=== PATIENT | female | born 1985 | race Caucasian/White ===

== ENCOUNTER 2019-02-08 12:14 | Emergency (ER) | payer BC ==
[2019-02-08] MEDS ORDERED: NS 1,000 ML IV ONE (12:41)
[2019-02-08] MEDS ORDERED: ONDANSETRON 4 MG/2 ML VIAL IVP ONE (12:41)
[2019-02-08 13:17] LABS: PLATELET COUNT 195 10^3/uL (150-400)
--- NOTE | 2019-02-08 14:45 | EDPHY ---
H & P Stated Complaint: n/v/d since tuesday Time Seen by Provider: 02/08/19 12:28 HPI/ROS: Chief complaint: Nausea, vomiting and diarrhea History of present illness: This is a 33-year-old female presents to the emergency department for evaluation nausea, vomiting and diarrhea. She reports she became sick approximately 4 days ago. Initially with nausea and vomiting now with diarrhea. She has occasional intermittent abdominal cramping. She denies precipitating factors. She denies alleviating factors. She denies other associated signs or symptoms including no fevers, no bilious vomit, no blood in the stools, no urinary symptoms. [place]. She denies sick contacts, she denies foreign travel, denies recent antibiotic use. Review of systems: A 10 point review of systems was obtained and other than described above was negative. - Personal History LMP (Females 10-55): 22-28 Days Ago Current Tetanus Diphtheria and Acellular Pertussis (TDAP): Yes - Medical/Surgical History Hx Asthma: No Hx Chronic Respiratory Disease: No Hx Diabetes: No Hx Cardiac Disease: No Hx Renal Disease: No Hx Cirrhosis: No Hx Alcoholism: No Hx HIV/AIDS: No Hx Splenectomy or Spleen Trauma: No Other PMH: appy - Social History Smoking Status: Never smoked - Physical Exam Exam: General Appearance: Alert, no distress. Eyes: Pupils equal and round no pallor or injection. ENT, Mouth: Mucous membranes moist. Respiratory: There are no retractions, lungs are clear to auscultation. Cardiovascular: Regular rate and rhythm. Gastrointestinal: Bowel sounds normal. Abdomen soft, nondistended, nontender. Neurological: Alert and oriented x4. Skin: Warm and dry, no rashes. Musculoskeletal: Neck is supple non tender. Extremities are symmetrical, full range of motion. Psychiatric: Patient is oriented X 3, there is no agitation. Constitutional: Initial Vital Signs Temperature (C) 36.7 C 02/08/19 12:23 Heart Rate 77 02/08/19 12:23 Respiratory Rate 18 02/08/19 12:23 Blood Pressure 121/90 H 02/08/19 12:23 O2 Sat (%) 97 02/08/19 12:23 O2 Delivery Mode Room Air Allergies/Adverse Reactions: No Known Allergies Allergy (Unverified 02/08/19 12:22) Home Medications: Medication Instructions Recorded Adderall 10 MG (*) 02/08/19 Ondansetron Odt [Zofran Odt 4 mg 4 mg PO Q4 #10 tab 02/08/19 (*)] Medical Decision Making ED Course/Re-evaluation: Patient seen under the supervision of my secondary supervising physician Dr. Armand Toussaint. Patient presents for nausea, vomiting and diarrhea. She is nontoxic. Vital signs are stable. She has a benign abdominal exam. Blood studies largely unremarkable, mild elevation of LFTs but she states this is chronic due to a history of malaria infection. She is IV hydrated and treated with Zofran and reports she feels much better. She has been unable to give us a stool sample. She is discharged. Home care is discussed. She is to follow up with her primary care doctor this week for recheck. Strict return precautions are given. Patient voiced understanding and agreement with plan. Differential Diagnosis: Included but not limited to gastritis, gastroenteritis, biliary tract disease, pancreatitis, colitis - Data Points Laboratory Results: Laboratory Results 02/08/19 12:58 02/08/19 12:58 02/08/19 02/08/19 02/08/19 12:58 12:58 12:58 WBC 4.00 10^3/uL 10^3/uL (3.80-9.50) RBC 4.21 10^6/uL 10^6/uL (4.18-5.33) Hgb 12.8 g/dL g/dL (12.6-16.3) Hct 37.7 % L % (38.0-47.0) MCV 89.5 fL fL (81.5-99.8) MCH 30.4 pg pg (27.9-34.1) MCHC 34.0 g/dL g/dL (32.4-36.7) RDW 12.8 % % (11.5-15.2) Plt Count 195 10^3/uL 10^3/uL (150-400) MPV 10.4 fL fL (8.7-11.7) Neut % (Auto) 52.6 % % (39.3-74.2) Lymph % (Auto) 29.8 % % (15.0-45.0) [place] % (Auto) 16.3 % H % (4.5-13.0) Eos % (Auto) 0.5 % L % (0.6-7.6) Baso % (Auto) 0.5 % % (0.3-1.7) Nucleat RBC Rel Count 0.0 % % (0.0-0.2) Absolute Neuts (auto) 2.11 10^3/uL 10^3/uL (1.70-6.50) Absolute Lymphs (auto) 1.19 10^3/uL 10^3/uL (1.00-3.00) Absolute Monos (auto) 0.65 10^3/uL 10^3/uL (0.30-0.80) Absolute Eos (auto) 0.02 10^3/uL L 10^3/uL (0.03-0.40) Absolute Basos (auto) 0.02 10^3/uL 10^3/uL (0.02-0.10) Absolute Nucleated RBC 0.00 10^3/uL 10^3/uL (0-0.01) Immature Gran % 0.3 % % (0.0-1.1) Immature Gran # 0.01 10^3/uL 10^3/uL (0.00-0.10) Sodium 136 mEq/L mEq/L (135-145) Potassium 3.5 mEq/L mEq/L (3.5-5.2) Chloride 102 mEq/L mEq/L (97-110) Carbon Dioxide 25 mEq/l mEq/l (22-31) Anion Gap 9 mEq/L mEq/L (6-14) BUN 5 mg/dL L mg/dL (7-23) Creatinine 0.4 mg/dL L mg/dL (0.6-1.0) Estimated GFR > 60 Glucose 85 mg/dL mg/dL (70-100) Calcium 8.8 mg/dL mg/dL (8.5-10.4) Total Bilirubin 0.2 mg/dL mg/dL (0.1-1.4) Conjugated Bilirubin 0.2 mg/dL mg/dL (0.0-0.5) Unconjugated Bilirubin 0.0 mg/dL mg/dL (0.0-1.1) AST 56 IU/L H IU/L (14-46) ALT 110 IU/L H IU/L (9-52) Alkaline Phosphatase 84 IU/L IU/L (38-126) Total Protein 6.0 g/dL L g/dL (6.3-8.2) Albumin 3.6 g/dL g/dL (3.5-5.0) Lipase 91 IU/L IU/L (23-300) Beta HCG, Qual NEGATIVE Medications Given: Discontinued Medications Sodium Chloride (Ns) 1,000 mls @ 0 mls/hr IV EDNOW ONE; Wide Open PRN Reason: Protocol Stop: 02/08/19 12:42 Last Admin: 02/08/19 12:59 Dose: 1,000 mls Ondansetron HCl (Zofran) 4 mg IVP EDNOW ONE Stop: 02/08/19 12:42 Last Admin: 02/08/19 12:58 Dose: 4 mg Departure - Departure Disposition: Home, Routine, Self-Care Clinical Impression: Vomiting and diarrhea Condition: Good Instructions: Acute Nausea and Vomiting (ED), Acute Diarrhea (ED) Additional Instructions: Follow-up with your primary care doctor this week for recheck Use Zofran as prescribed as needed for nausea and vomiting Drink plenty of fluids to stay hydrated Please have your doctor recheck your liver function studies If symptoms worsen or new symptoms develop return to the emergency room for recheck Referrals: NONE *PRIMARY CARE P,. [Primary Care Provider] - As per Instructions [facility],. [Clinic] - As per Instructions Prescriptions: Ondansetron Odt [Zofran Odt 4 mg (*)] 4 mg PO Q4 #10 tab
[2019-02-08 15:01] VITALS: BP 122/74
== END 2019-02-08 14:30 | disposition home or self-care (01) ==
DX: R11.2 Nausea with vomiting, unspecified (principal); R19.7 Diarrhea, unspecified; E86.9 Volume depletion, unspecified
CPT/HCPCS: 96374; J2405